=== PATIENT | male | born 1955 | race Caucasian/White ===

== ENCOUNTER 2016-09-24 13:32 | Emergency (ER) | payer OTHER ==
[2016-09-24 14:18] LABS: #Basophils 0.1 thou/uL (0.0-0.2); #Eosinphils 0.2 thou/uL (0.0-0.7); #Lymphocytes 1.6 thou/uL (1.20-3.40); #Monocytes 0.9 thou/uL (0.11-0.59); #Neutrophils 5.6 thou/uL (1.40-6.50); %Basophils 0.9 % (0.0-1.0); %Monocytes 10.3 % (0.0-10.0); Hematocrit 44.1 % (42.0-52.0); Mean Platelet Volume 5.6 fL (7.4-10.4); White Blood Cell (WBC) Count 8.3 thou/uL (4.8-10.8)
[2016-09-24 14:25] LABS: Bilirubin Negative (Negative); Blood, Urine Trace (Negative); Glucose, Urine (Dipstick) Negative (Negative); Ketone, Urine Negative (Negative); Nitrite Negative (Negative); Protein, Urine (Dipstick) Negative (Neg-Trace)
[2016-09-24 14:33] LABS: ALT (SGPT) 20 U/L (0-55); AST (SGOT) 25 U/L (5-34); Alkaline Phosphatase 99 U/L (40-150); Anion Gap 14 mmol/L (10-20); BUN (Urea Nitrogen) 15 mg/dL (8.4-25.7); Bilirubin, Total 0.5 mg/dL (0.2-1.2); Calc. Creatinine Clearance 0 mL/min (70-130); Calcium 9.2 mg/dL (7.8-10.44); Carbon Dioxide 28 mmol/L (22-29); Chloride 105 mmol/L (98-107); Estimated GFR-MDRD 74; Globulin 3.4 g/dL (2.4-3.5); Protein, Total 7.7 g/dL (6.0-8.3); Troponin I Less than 0.010 ng/mL (< 0.028)
[2016-09-24 14:38] LABS: RBC/HPF 0-3 HPF (0-3); Squamous Epithelial 0-3 HPF (0-3); WBC/HPF 0-3 HPF (0-3)
[2016-09-24 14:39] LABS: Bacteria/HPF Rare-Few HPF (None Seen)
[2016-09-24 14:53] LABS: Methadone Not Detected (NotDetected); Methamphetamine Not Detected (NotDetected)
== END 2016-09-24 15:19 | disposition home or self-care (01) ==
LOC: BURERS 13:32
DX: F41.9 Anxiety disorder, unspecified (principal); M19.90 Unspecified osteoarthritis, unspecified site; F17.210 Nicotine dependence, cigarettes, uncomplicated; Z79.899 Other long term (current) drug therapy
CPT/HCPCS: 36415; 80053; 80306; 81003; 81015; 82553; 84443; 84484; 85025; 93005

== ENCOUNTER 2017-02-10 12:15 | Emergency (ER) | payer OTHER ==
[2017-02-10] MEDS ORDERED: HYDROcodone/Acetaminophen 10/325 mg Tablet ONE (12:41)
== END 2017-02-10 12:52 | disposition home or self-care (01) ==
LOC: BURERS 12:15
DX: S02.5XXA Fracture of tooth (traumatic), initial encounter for closed fracture (principal); M19.90 Unspecified osteoarthritis, unspecified site; F32.9 Major depressive disorder, single episode, unspecified; F17.210 Nicotine dependence, cigarettes, uncomplicated; F41.9 Anxiety disorder, unspecified; F43.10 Post-traumatic stress disorder, unspecified; K21.9 Gastro-esophageal reflux disease without esophagitis; Z79.899 Other long term (current) drug therapy; X58.XXXA Exposure to other specified factors, initial encounter
CPT/HCPCS: 99282

== ENCOUNTER 2017-08-09 19:22 | Emergency (ER) | payer OTHER ==
[2017-08-09] MEDS ORDERED: Neomycin-Polymyxin-Hc 7.5 ML BOT ONE (19:58)
[2017-08-09] MEDS ORDERED: Sulfameth/Trimethoprim DS 800-160mg TAB ONE (19:58)
[2017-08-09] MEDS ORDERED: cloNIDine 0.1 MG TAB ONE (19:58)
== END 2017-08-09 20:15 | disposition home or self-care (01) ==
LOC: BURERS 19:22
DX: H00.016 Hordeolum externum left eye, unspecified eyelid (principal); I10 Essential (primary) hypertension; M19.90 Unspecified osteoarthritis, unspecified site; K21.9 Gastro-esophageal reflux disease without esophagitis; F43.10 Post-traumatic stress disorder, unspecified; F32.9 Major depressive disorder, single episode, unspecified; F41.9 Anxiety disorder, unspecified; F17.210 Nicotine dependence, cigarettes, uncomplicated
CPT/HCPCS: 99282

== ENCOUNTER 2019-01-20 13:29 | Emergency (ER) | payer OTHER | END 2019-01-20 13:44 | disposition home or self-care (01) | LOC: BURERS 13:29 | DX: K04.7 Periapical abscess without sinus (principal); K02.9 Dental caries, unspecified; M19.90 Unspecified osteoarthritis, unspecified site; K21.9 Gastro-esophageal reflux disease without esophagitis; F32.9 Major depressive disorder, single episode, unspecified; F41.9 Anxiety disorder, unspecified; F17.210 Nicotine dependence, cigarettes, uncomplicated; F43.10 Post-traumatic stress disorder, unspecified ==

== ENCOUNTER 2019-03-07 15:03 | Outpatient (CLI) | payer OTHER ==
--- NOTE | 2019-03-07 19:21 | RAD ---
RIGHT HIP TWO VIEWS: 03/07/19 Two views show no fracture or area of bony destruction. The joint space appears normal and the articu lar surfaces are smooth. A small sclerotic area in the femoral head has the appearance of a bone javier nd and does not concern me for possible metastasis. The remainder of the visible bony pelvis appeared unremarkable. IMPRESSION: No acute findings. POS: HOME
== END 2019-03-07 15:04 | disposition home or self-care (01) ==
LOC: BURRAD 15:03
PROVIDERS: ATTEND Family Medicine
DX: M25.551 Pain in right hip (principal); C61 Malignant neoplasm of prostate

== ENCOUNTER 2021-01-03 17:57 | Emergency (ER) | payer OTHER ==
[2021-01-03] MEDS ORDERED: Penicillin V Potassium 250 MG TAB ONE (18:45)
== END 2021-01-03 18:48 | disposition home or self-care (01) ==
LOC: BURERS 17:57
DX: K02.9 Dental caries, unspecified (principal); K21.9 Gastro-esophageal reflux disease without esophagitis; F17.210 Nicotine dependence, cigarettes, uncomplicated; Z79.899 Other long term (current) drug therapy
CPT/HCPCS: 99282

== ENCOUNTER 2024-04-04 18:24 | Emergency (ER) | payer OTHER ==
[~2024-04-04 18:24] MED LIST: Iopamidol 370 76% 100 ML VIAL ONE
[2024-04-04 19:09] LABS: #Basophils 0.1 thou/uL (0.0-0.2); #Eosinphils 0.2 thou/uL (0.0-0.7); #Lymphocytes 1.5 thou/uL (1.20-3.40); #Neutrophils 5.9 thou/uL (1.40-6.50); %Basophils 0.9 % (0.0-1.0); %Eosinophils 2.7 % (0.0-10.0); %Lymphocytes 17.5 % (21.0-51.0); Hematocrit 37.6 % (42.0-52.0); Hemoglobin 12.3 g/dL (14.0-18.0); Mean Corpuscular HGB CONC 32.8 g/dL (32.0-36.0); Mean Corpuscular Hemoglobin 31.2 pg (27.0-31.0); Mean Corpuscular Volume 95.3 fl (78.0-98.0); Mean Platelet Volume 6.3 fL (7.4-10.4); Platelet Count 286 10x3/uL (130-400); Red Blood Cell (RBC) Count 3.95 mill/uL (4.70-6.10); White Blood Cell (WBC) Count 8.6 10x3/uL (4.8-10.8)
[2024-04-04 19:27] LABS: ALT (SGPT) 14 U/L (8-55); AST (SGOT) 26 U/L (5-34); Albumin 3.2 g/dL (3.4-4.8); Alkaline Phosphatase 146 U/L (40-110); Anion Gap 21 mmol/L (10-20); BUN (Urea Nitrogen) 11 mg/dL (8.4-25.7); Bilirubin, Total 0.3 mg/dL (0.2-1.2); Calc. Creatinine Clearance 0 mL/min (70-130); Calcium 9.7 mg/dL (7.8-10.44); Carbon Dioxide 20 mmol/L (23-31); Chloride 105 mmol/L (98-107); Estimated GFR 88; Globulin 4.5 g/dL (2.4-3.5); Glucose 90 mg/dL (80-115); Potassium 4.1 mmol/L (3.5-5.1); Protein, Total 7.7 g/dL (5.8-8.1); Sodium 142 mmol/L (136-145)
[2024-04-04 19:28] LABS: Troponin I Less than 0.010 ng/mL (< 0.028)
[2024-04-04 23:21] LABS: Bilirubin Negative (Negative); Blood, Urine Negative (Negative); Clarity Clear (Clear); Glucose, Urine (Dipstick) Negative (Negative); Ketone, Urine Negative (Negative); Leukocyte Negative (Negative); Nitrite Negative (Negative); Protein, Urine (Dipstick) Negative (Neg-Trace); pH, Urine 6.5 (5.0-9.0)
[2024-04-04 23:43] LABS: Bacteria/HPF Rare-Few HPF (None Seen); RBC/HPF None Seen HPF (0-3)
[2024-04-05 00:11] LABS: CAUTI Indications for Culture Alt mental st,lethar; Squamous Epithelial 0-3 HPF (0-3); WBC/HPF 0-3 HPF (0-3)
[2024-04-05 00:12] LABS: Urine Culture Reflex No No
== END 2024-04-05 01:04 | disposition home or self-care (01) ==
LOC: BURERS 18:24
DX: E86.0 Dehydration (principal); F17.210 Nicotine dependence, cigarettes, uncomplicated
CPT/HCPCS: 71045; 71275; 80053; 81001; 83880; 84484; 85025; 93005; Q9967